=== PATIENT | male | born 1955 | race Caucasian/White ===

== ENCOUNTER 2022-12-29 17:52 | Outpatient (REF) | payer MEDICARE, SELFPAY ==
[2022-12-29 21:37] LABS: ALT 35 U/L (16-63); AST 21 U/L (15-37); Albumin 4.5 g/dL (3.4-5.0); Alkaline Phosphatase 110 U/L (46-116); Anion Gap 10.7 mmol/L (3-11); BUN 19 mg/dL (7-18); Bilirubin, Total 0.5 mg/dL (0.2-1.0); CO2 24.3 mmol/L (21.0-32.0); CREATININE 1.2 mg/dL (0.70-1.30); Calcium 9.5 mg/dL (8.5-10.1); Chloride 103 mmol/L (98-107); Estimated GFR 66.28 (mL/min/1.73m2); Glucose 81 mg/dL (74-106); Sodium 138 mmol/L (136-145); Total Protein 8.4 g/dL (6.4-8.2)
[2022-12-29 21:48] LABS: Abs Immature Grans 0.01 10^3/uL (0.0-0.06); Absolute Basophil Count 0.04 10^3/uL (0.0-0.2); Absolute Eosinophil Count 0.19 10^3/uL (0.0-0.7); Absolute Lymphocyte Count 1.99 10^3/uL (1.2-3.4); Absolute Monocyte Count 0.47 10^3/uL (0.1-0.8); Absolute Neutrophil Count 3.16 10^3/uL (1.2-6.7); Basophils % 0.7; Eosinophils % 3.2; HCT 42.5 % (40.0-50.0); HGB 13.9 g/dL (13.5-17.5); Immature Grans % 0.2; MCH 29.1 pg (27.0-33.0); MCHC 32.7 % (32.0-36.0); MCV 89 fL (80-95); MPV 10.3 fL (8.0-11.0); Neutrophils % 53.9; Platelet Count 243 10^3/uL (130-400); RBC 4.77 10^6/uL (4.36-5.78); RDW 12.5 % (11.8-14.1); RDW-SD 41.1 fL; WBC 5.86 10^3/uL (4.4-10.8)
== END 2022-12-29 17:53 | disposition home or self-care (01) ==
LOC: NCHCN 17:52
PROVIDERS: Visit Provider Family Medicine
DX: E11.9 Type 2 diabetes mellitus without complications (principal); I10 Essential (primary) hypertension; R97.20 Elevated prostate specific antigen [PSA]; N40.1 Benign prostatic hyperplasia with lower urinary tract symptoms; Z12.5 Encounter for screening for malignant neoplasm of prostate
CPT/HCPCS: 80053; 84153; 85025

== ENCOUNTER → 2023-02-20 08:43 | Outpatient (BNVA) | payer MEDICARE, SELFPAY | PROVIDERS: PCP Family Medicine; Referring Provider Family Medicine; Visit Provider Nurse Practitioner Gerontology | DX: N40.1 Benign prostatic hyperplasia with lower urinary tract symptoms (principal); N13.8 Other obstructive and reflux uropathy; R97.20 Elevated prostate specific antigen [PSA] | CPT/HCPCS: 51798; 81003; 99205 ==

== ENCOUNTER → 2023-04-27 12:56 | Outpatient (BNVA) | payer MEDICARE, SELFPAY | PROVIDERS: PCP Family Medicine; Referring Provider Family Medicine; Visit Provider Nurse Practitioner Gerontology | DX: N40.1 Benign prostatic hyperplasia with lower urinary tract symptoms (principal); N13.8 Other obstructive and reflux uropathy; R97.20 Elevated prostate specific antigen [PSA] | CPT/HCPCS: 99215 ==

== ENCOUNTER 2023-06-26 11:21 | Outpatient (REF) | payer MEDICARE, SELFPAY ==
[2023-06-26 16:39] LABS: Hemoglobin A1C 6.7 % (<5.7)
[2023-06-26 22:58] LABS: PSA, Screening 12.1 ng/mL (<=4.5)
== END 2023-06-26 11:22 | disposition home or self-care (01) ==
LOC: NCHCN 11:21
PROVIDERS: PCP Family Medicine; Visit Provider Family Medicine
DX: E11.9 Type 2 diabetes mellitus without complications (principal); R97.20 Elevated prostate specific antigen [PSA]; Z12.5 Encounter for screening for malignant neoplasm of prostate
CPT/HCPCS: 84153; 83036

== ENCOUNTER 2023-10-23 03:21 | Outpatient (CLI) | payer MEDICARE, SELFPAY ==
[2023-10-23 18:08] LABS: PSA, Diagnostic 11.5 ng/mL (<=4.5)
== END 2023-10-23 03:22 | disposition home or self-care (01) ==
LOC: LBO 03:21
PROVIDERS: PCP Family Medicine; Visit Provider Nurse Practitioner Gerontology
DX: R97.20 Elevated prostate specific antigen [PSA] (principal); N40.1 Benign prostatic hyperplasia with lower urinary tract symptoms; N13.8 Other obstructive and reflux uropathy
CPT/HCPCS: 36415; 84153

== ENCOUNTER → 2023-10-30 09:43 | Outpatient (BNVA) | payer MEDICARE, SELFPAY | PROVIDERS: PCP Family Medicine; Referring Provider Family Medicine; Visit Provider Nurse Practitioner Gerontology | DX: N40.1 Benign prostatic hyperplasia with lower urinary tract symptoms (principal); N13.8 Other obstructive and reflux uropathy; R97.20 Elevated prostate specific antigen [PSA]; N42.89 Other specified disorders of prostate | CPT/HCPCS: 99213 ==

== ENCOUNTER 2024-01-22 01:02 | Outpatient (CLI) | payer MEDICARE, SELFPAY ==
--- NOTE | 2024-01-22 | DI.CTLCSR_ITS ---
Exam(s) CT CHEST LUNG CANCER SCREEN EXAM: CT CHEST LUNG CANCER SCREEN CLINICAL HISTORY: FORMER SMOKER Z87.891 HX NICOTINE DEPENDENCE TECHNIQUE: Imaging Protocol: Axial computed tomography images with coronal and sagittal reformatted images were created and reviewed. Low dose screening protocol. COMPARISON: No exams were available for comparison FINDINGS: Tracheobronchial tree: No bronchiectasis or mucus plugging. Mediastinum and Abeba: No dominant adenopathy or fluid collection. Pulmonary parenchyma: No consolidation or dominant measurable mass. Mild emphysematous changes. Mild interstitial changes. Lung Nodules: Question of an 8 millimeter diameter nodule in the anterior right upper lobe. This at vessel branch point and the measurements include the vessel. Pleura: No effusion. No pneumothorax. Heart: The heart is not dilated. Mild coronary artery calcifications are seen. No pericardial effusio n. Aorta: Thoracic aorta non-dilated. Upper abdomen: Unremarkable. Bones: Prominent osteophytes in the mid and lower thoracic spine. Soft Tissues: Mild bilateral gynecomastia. IMPRESSION: 8 millimeter right upper lobe nodule. Lung RADS Cat 3 - Probably Benign: Probably benign finding(s) - short term follow-up suggested; inclu de nodules with a low likelihood of becoming a clinically active cancer. Lung-RADS 1.0 CATEGORIES: Category 0 - Prior chest CT exam(s) being located for comparison. Category 1 - Annual screening in 12 months. No nodules or definitely benign nodules. Category 2 - Annual screening in 12 months. Benign appearance. Nodules with low likelihood of becomin g active cancer. Category 3 - 6-month follow-up. Probably benign. Short-term follow-up suggested. Nodules with low lik elihood of becoming active cancer. Category 4A - 3-month follow-up and CT/PET if >8 mm in size. Suspicious finding. Findings which requi re additional testing. Category 4B - Findings which require additional testing and tissue sampling. Category 4X - Category 3 or 4 nodules with additional features or imaging findings that increases the suspicion of malignancy. Modifier S- Potentially clinically significant findings (non lung cancer) RADIATION DOSE DELIVERED: !Error Total DLP Total DLP !Error Total DLP DATA REPOSITORY: All CT scans at this facility are submitted to the National Radiology Data Registry (NRDR) Dose Index Registry (DIR) with the [employer] (ACR). RADIATION OPTIMIZATION: All CT scans at this facility use at least one of these dose optimization te araseli: automated exposure control; mA and/or kV adjustment per patient size (includes targeted exa ms where dose is matched to clinical indication); or iterative reconstruction.
== END 2024-01-22 01:22 ==
LOC: DI 01:02
PROVIDERS: PCP Family Medicine; Visit Provider Family Medicine
DX: Z87.891 Personal history of nicotine dependence (principal); Z12.2 Encounter for screening for malignant neoplasm of respiratory organs; R91.1 Solitary pulmonary nodule
CPT/HCPCS: 36415; 71271; 80053; 81403; 83721; 85025

== ENCOUNTER 2024-01-22 14:17 | Outpatient (CLI) | payer MEDICARE, SELFPAY ==
[2024-01-22 15:18] LABS: Abs Immature Grans 0.02 10^3/uL (0.0-0.06); Absolute Basophil Count 0.04 10^3/uL (0.0-0.2); Absolute Eosinophil Count 0.33 10^3/uL (0.0-0.7); Absolute Lymphocyte Count 2.24 10^3/uL (1.2-3.4); Absolute Monocyte Count 0.51 10^3/uL (0.1-0.8); Absolute Neutrophil Count 3.77 10^3/uL (1.2-6.7); Basophils % 0.6 %; Eosinophils % 4.8 %; HCT 42.9 % (40.0-50.0); Immature Grans % 0.3 %; Lymphocytes % 32.4 %; MCH 29.7 pg (27.0-33.0); MCHC 32.6 % (32.0-36.0); MCV 91 fL (80-95); MPV 9.6 fL (8.0-11.0); Monocytes % 7.4 %; Neutrophils % 54.5 %; Platelet Count 260 10^3/uL (130-400); RBC 4.71 10^6/uL (4.36-5.78); RDW 12.7 % (11.8-14.1); RDW-SD 41.6 fL; WBC 6.91 10^3/uL (4.4-10.8)
[2024-01-22 16:48] LABS: ALT 40 U/L (16-63); AST 21 U/L (15-37); Albumin 4.1 g/dL (3.4-5.0); Alkaline Phosphatase 106 U/L (46-116); Anion Gap 8.1 mmol/L (3-11); BUN 19 mg/dL (7-18); CO2 27.9 mmol/L (21.0-32.0); CREATININE 1.1 mg/dL (0.70-1.30); Calcium 9.4 mg/dL (8.5-10.1); Chloride 107 mmol/L (98-107); Estimated GFR 73.12 (mL/min/1.73m2); Glucose 130 mg/dL (74-106); LDL CHOLESTEROL 85 mg/dL (<100); Potassium 4.4 mmol/L (3.5-5.1); Sodium 143 mmol/L (136-145)
[2024-01-26 09:33] LABS: Misc Referral (MAYO) See Comments
== END 2024-01-22 14:18 | disposition home or self-care (01) ==
LOC: LBO 14:17
PROVIDERS: PCP Family Medicine; Visit Provider Family Medicine
DX: I10 Essential (primary) hypertension (principal); E78.5 Hyperlipidemia, unspecified; Z14.8 Genetic carrier of other disease
CPT/HCPCS: 36415; 80053; 83721; 85025

== ENCOUNTER 2024-04-22 03:44 | Outpatient (CLI) | payer MEDICARE, SELFPAY ==
[2024-04-22 18:45] LABS: PSA, Diagnostic 8.5 ng/mL (<=4.5)
== END 2024-04-22 03:45 | disposition home or self-care (01) ==
LOC: LBO 03:44
PROVIDERS: PCP Family Medicine; Visit Provider Nurse Practitioner Gerontology
DX: N40.1 Benign prostatic hyperplasia with lower urinary tract symptoms (principal); N13.8 Other obstructive and reflux uropathy; R97.20 Elevated prostate specific antigen [PSA]
CPT/HCPCS: 36415; 84153

== ENCOUNTER → 2024-05-06 10:21 | Outpatient (BNVA) | payer MEDICARE, SELFPAY | PROVIDERS: PCP Family Medicine; Referring Provider Family Medicine; Visit Provider Nurse Practitioner Gerontology | DX: N13.8 Other obstructive and reflux uropathy (principal); N40.1 Benign prostatic hyperplasia with lower urinary tract symptoms | CPT/HCPCS: 99213 ==

== ENCOUNTER 2024-06-20 10:19 | Emergency (ER) | payer MEDICARE, SELFPAY ==
[2024-06-20 10:38] VITALS: BP 144/79; PULSE 107; RESP 20; TEMP 36.6; O2SAT 93
--- NOTE | 2024-06-20 12:00 | DI.CT_ITS ---
Exam(s) CT ABDOMEN PELVIS W EXAM: CT ABDOMEN PELVIS W CLINICAL HISTORY: RLQ pain. TECHNIQUE: Imaging Protocol: Axial computed tomography images with coronal and sagittal reformatted images were created and reviewed CONTRAST MATERIAL: Intravenous: Omnipaque 350 Contrast volume:8 ml Oral: no COMPARISON: CT CT CHEST LUNG CANCER SCREEN from 01/22/2024 FINDINGS: ABDOMEN and PELVIS: Lung Bases: Bilateral bronchial wall thickening. Liver: Normal density. No suspicious mass. Gallbladder and biliary tract: Cholecystectomy. No biliary dilation. Pancreas: Normal density. No abnormal calcifications or inflammatory process. No evidence of mass. Spleen: Normal. Kidneys: Normal size, contour and axis. No radiodense stones. No obstructive uropathy. Simple cysts on the right kidney. No follow-up recommended. No suspicious masses seen. Adrenal glands: No masses seen. Vasculature: Abdominal aorta non-dilated. Mild atherosclerotic changes. Soft tissues: Unremarkable. Bladder: No gross wall thickening. No calculi.No focal mass. Bowel: No obstruction. No bowel wall thickening. Appendix normal. Mild diverticulosis. No evidenc e of diverticulitis. Normal quantity of stool. Peritoneal cavity: No ascites. No focal collection. No mesenteric inflammatory response. No free air . Bones: Unremarkable for age. Reproductive organs: Prostate mildly enlarged. Lymph nodes: No pathologically enlarged lymph nodes. IMPRESSION:: No acute abnormality in the abdomen or pelvis. Appendix normal. Bilateral bronchial wall thickening at the lung bases could indicate bronchitis. RADIATION DOSE DELIVERED: Total DLP DATA REPOSITORY: All CT scans at this facility are submitted to the National Radiology Data Registry (NRDR) Dose Index Registry (DIR) with the [employer] (ACR). RADIATION OPTIMIZATION: All CT scans at this facility use at least one of these dose optimization te chniques: automated exposure control; mA and/or kV adjustment per patient size (includes targeted exa ms where dose is matched to clinical indication); or iterative reconstruction.
[2024-06-20 12:33] LABS: Abs Immature Grans 0.04 10^3/uL (0.0-0.06); Absolute Basophil Count 0.04 10^3/uL (0.0-0.2); Absolute Eosinophil Count 0.04 10^3/uL (0.0-0.7); Absolute Lymphocyte Count 1.28 10^3/uL (1.2-3.4); Absolute Monocyte Count 0.63 10^3/uL (0.1-0.8); Absolute Neutrophil Count 8.28 10^3/uL (1.2-6.7); Basophils % 0.4 %; Eosinophils % 0.4 %; HCT 41.3 % (40.0-50.0); HGB 13.5 g/dL (13.5-17.5); Immature Grans % 0.4 %; Lymphocytes % 12.4 %; MCH 28.8 pg (27.0-33.0); MCHC 32.7 % (32.0-36.0); MCV 88 fL (80-95); MPV 9.7 fL (8.0-11.0); Monocytes % 6.1 %; Neutrophils % 80.3 %; Platelet Count 246 10^3/uL (130-400); RBC 4.68 10^6/uL (4.36-5.78); RDW 12.6 % (11.8-14.1); WBC 10.31 10^3/uL (4.4-10.8)
[2024-06-20 13:12] LABS: Bilirubin Negative (Negative); Blood Moderate (Negative); Clarity Clear (Clear); Glucose 100 mg/dL (Negative); Ketones 15 mg/dL (Negative); Leukocyte Esterase Negative (Negative); Nitrite Negative (Negative); Specific Gravity >= 1.030 (1.005-1.025); Urobilinogen 0.2 mg/dL (Up to 0.2)
[2024-06-20 13:36] LABS: Bacteria Rare HPF (Negative); C & S Indicated? No; Casts Negative LPF (Negative); Crystals Moderate Uric Acid HPF (Negative); Epithelial Cells Rare HPF (Negative); Mucus Negative (Negative); Other Cells Negative (Negative); WBC Negative HPF (0-5)
[2024-06-20 13:47] LABS: ALT 34 U/L (16-63); AST 22 U/L (15-37); Albumin 3.7 g/dL (3.4-5.0); Alkaline Phosphatase 128 U/L (46-116); Anion Gap 8.6 mmol/L (3-11); BUN 19 mg/dL (7-18); Bilirubin, Total 0.4 mg/dL (0.2-1.0); CO2 25.4 mmol/L (21.0-32.0); CREATININE 1.6 mg/dL (0.70-1.30); Calcium 9.5 mg/dL (8.5-10.1); Chloride 108 mmol/L (98-107); Estimated GFR 46.64 (mL/min/1.73m2); Glucose 164 mg/dL (74-106); Potassium 4.3 mmol/L (3.5-5.1); Sodium 142 mmol/L (136-145); Total Protein 8.3 g/dL (6.4-8.2)
[2024-06-20] MEDS: Omnipaque 350 MG/ML 100 ML BTL IJ (14:26)
[2024-06-20] MEDS: Normal Saline - Diluent 50 ML VIAL IJ (14:28)
[2024-06-20 14:40] LABS: Lipase 29 U/L (<78)
[2024-06-20 15:41] VITALS: BP 159/77; PULSE 92; RESP 15; RESP 16; TEMP 36.7; O2SAT 95
[2024-06-20] MEDS: Ketorolac 15 MG/ML VIAL 7.5 MG IVP (15:51)
--- NOTE | 2024-06-20 17:03 | W.ED.GENAD ---
Discharge Plan Disposition Patient Disposition: Home Condition: Stable Discharge Details Clinical Impression: Abdominal pain Primary Care Provider: Fer Tesfaye ED Provider: Kayy Greenberg Home Meds and New Rx's Prescriptions: Continued tamsulosin [Flomax] 0.4 mg capsule 0.4 mg PO DAILY Qty: 90 1RF amlodipine 10 mg tablet 10 mg PO DAILY metformin 500 mg tablet 500 mg PO DAILY olmesartan 40 mg tablet 40 mg PO DAILY simvastatin 40 mg tablet 40 mg PO DAILY naproxen 250 mg tablet 250 mg PO BID PRN glipizide 10 mg tablet 5 mg PO DAILY Discharge Instructions Instructions: Abdominal Pain, Adult ED Additional Instructions: Recommend stool softener, Dulcolax which is [id number]-rrt-[id number] make sure you are consuming 8, 8 oz glasses of water daily Take Naprosyn and Tylenol as prescribed Have your urine rechecked as you have a scant amount of blood noted Have your kidney function rechecked by your doctor in the next 1 to 2 weeks If you have worsening pain fever chills please return for reassessment but your CT scan was reassuring today you did not have an elevated white blood cell count Referrals: Fer Tesfaye MD [Primary Care Provider] - 2 days Discharge Data Discharge Date/Time-TO BE ENTERED AT DEPARTURE: 06/20/24 16:01 HPI General Date/Time Provider Initiated Documentation: 06/20/24 11:43. HPI Narrative: The patient is a 58-year-old male who presents with abdominal pain since this morning, accompanied by nausea and constipation. The abdominal pain started at 0500 hours. He reports that the pain has improved at the time of the visit, but due to its severity at onset, he sought medical assessment. He does not experience any radiation of pain, urinary symptoms, fever, chills, or respiratory symptoms. He recently was diagnosed with COVID-19 at the beginning of the month. Related Data Home Medications ?Medication ?Instructions ?Recorded ?Confirmed amlodipine 10 mg tablet 10 mg PO DAILY 01/06/23 metformin 500 mg tablet 500 mg PO DAILY 01/06/23 naproxen 250 mg tablet 250 mg PO BID PRN 01/06/23 olmesartan 40 mg tablet 40 mg PO DAILY 01/06/23 simvastatin 40 mg tablet 40 mg PO DAILY 01/06/23 glipizide 10 mg tablet 5 mg PO DAILY 05/06/24 tamsulosin 0.4 mg capsule (Flomax) 0.4 mg PO DAILY #90 caps 05/06/24 05/06/24 Previous Rx's ?Medication ?Instructions ?Recorded tamsulosin 0.4 mg capsule (Flomax) 0.4 mg PO DAILY #90 caps 05/06/24 Allergies Allergy/AdvReac Type Severity Reaction Status Date / Time lisinopril Allergy Other (See Verified 06/20/24 10:40 Comment) General Stated Complaint: Abd Prob DARLIN: 3 Exam Narrative Exam Narrative: General Appearance: Patient is alert and oriented, not in acute distress. Vital signs: Within normal limits. HEENT: Within normal limits. Respiratory: Lungs are clear to auscultation. Cardiovascular: Cardiac rhythm is regular. Gastrointestinal: There is some tenderness in the right lower quadrant of the abdomen without rebound or guarding. No palpable hernia or mass. No abdominal bruit or pulsatile mass appreciated. Genitourinary: No CVA tenderness. Back, Musculoskeletal: Distal pulses in the musculoskeletal system are intact. Skin: Warm and dry, no rash. Neurological: Normal. Course Vital Signs Vital signs: Vital Signs Temperature 36.6 C 06/20/24 10:38 Pulse 107 H 06/20/24 10:38 Respiratory Rate 20 06/20/24 10:38 Blood Pressure 144/79 H 06/20/24 10:38 Pulse Oximetry 93 06/20/24 10:38 Temperature 36.7 C 06/20/24 15:41 Temperature Source Oral 06/20/24 15:41 Pulse 92 H 06/20/24 15:41 Respiratory Rate 15 06/20/24 15:41 Blood Pressure 159/77 H 06/20/24 15:41 Blood Pressure Position Supine 06/20/24 15:41 Pulse Oximetry 95 06/20/24 15:41 Oxygen Delivery Method Room Air 06/20/24 15:41 Oxygen Flow Rate 0 06/20/24 15:41 Pain Level 4 06/20/24 10:38 Lab/Test Results Lab/Test Results: Laboratory Tests Range/Units 06/20/24 06/20/24 12:26 12:50 WBC (4.4-10.8) 10^3/uL 10.31 RBC (4.36-5.78) 10^6/uL 4.68 Hgb (13.5-17.5) g/dL 13.5 Hct (40.0-50.0) % 41.3 MCV (80-95) fL 88 MCH (27.0-33.0) pg 28.8 MCHC (32.0-36.0) % 32.7 RDW (11.8-14.1) % 12.6 Plt Count (130-400) 10^3/uL 246 MPV (8.0-11.0) fL 9.7 Immature Gran % % 0.4 Neutrophils % % 80.3 Lymphocytes % % 12.4 Monocytes % % 6.1 Eosinophils % % 0.4 Basophils % % 0.4 Nucleated RBC % (0.0-0.3) % 0.0 Absolute Neutrophils (1.2-6.7) 10^3/uL 8.28 H Absolute Lymphocytes (1.2-3.4) 10^3/uL 1.28 Absolute Monocytes (0.1-0.8) 10^3/uL 0.63 Absolute Eosinophils (0.0-0.7) 10^3/uL 0.04 Absolute Basophils (0.0-0.2) 10^3/uL 0.04 Sodium (136-145) mmol/L 142 Potassium (3.5-5.1) mmol/L 4.3 Chloride (98-107) mmol/L 108 H Carbon Dioxide (21.0-32.0) mmol/L 25.4 Anion Gap (3-11) mmol/L 8.6 BUN (7-18) mg/dL 19 H Creatinine (0.70-1.30) mg/dL 1.6 H Est GFR (CKD-EPI 2020) (mL/min/1.73m2) 46.64 Glucose (74-106) mg/dL 164 H Calcium (8.5-10.1) mg/dL 9.5 Total Bilirubin (0.2-1.0) mg/dL 0.4 AST (15-37) U/L 22 ALT (16-63) U/L 34 Alkaline Phosphatase (46-116) U/L 128 H Total Protein (6.4-8.2) g/dL 8.3 H Albumin (3.4-5.0) g/dL 3.7 Lipase (<78) U/L 29 Urine Color (Yellow) Yellow Urine Clarity (Clear) Clear Urine pH (5-8) 6.0 Ur Specific [place] (1.005-1.025) >= 1.030 H Urine Protein (Neg-Trace) mg/dL 30 H Urine Ketones (Negative) mg/dL 15 H Urine Blood (Negative) Moderate H Urine Nitrite (Negative) Negative Urine Bilirubin (Negative) Negative Urine Urobilinogen (Up to 0.2) mg/dL 0.2 Ur Leukocyte Esterase (Negative) Negative Urine RBC (0-2) HPF 10-20 H Urine WBC (0-5) HPF Negative Ur Epithelial Cells (Negative) HPF Rare Urine Crystals (Negative) HPF Moderate Uric Acid Urine Bacteria (Negative) HPF Rare Urine Casts (Negative) LPF Negative Urine Mucus (Negative) Negative Urine Other (Negative) Negative Ur Culture Indicated? No Urine Glucose (Negative) mg/dL 100 H Medical Decision Making Laboratory Studies Sodium is 124. Glucose has gone down to 713. Creatinine 1.6. Imaging CT abdomen and pelvis did not show evidence of acute abnormality. Initial Assessment: 58-year-old male presents with abdominal pain since this morning with nausea and constipation. Pain started at 5 AM, recently diagnosed with Covid at the beginning of the month. Pain improved at this time, but due to severity at onset, presents for assessment. Denies radiation of pain, urinary symptoms, fever, chills, or respiratory symptoms. Alert and oriented, no acute distress, tenderness in right lower quadrant without rebound or guarding, no palpable hernia or mass, no abdominal bruit or pulsatile mass, no CVA tenderness, distal pulses intact, lungs clear to auscultation, cardiac rhythm regular. ED Course: - CT abdomen and pelvis ordered, radiology interpretation and personal review did not show evidence of acute abnormality. - Creatinine 1.6, slightly increased, suspect dehydration, patient encouraged to hydrate at home. - Glucose rechecked by primary care physician, result 164. - Urinalysis and lab, patient encouraged to have urinalysis rechecked in 1 to 2 weeks. - No evidence of secondary infection. - Stool in right colon may be contributing to discomfort, MiraLAX recommended for home use. - Return precautions reviewed and patient expressed understanding. Final Assessment: Abdominal pain likely due to stool in right colon and possible dehydration. No acute abnormalities on CT scan. Slightly elevated creatinine suggesting dehydration. Glucose and urinalysis to be rechecked by primary care physician. MiraLAX recommended for constipation. Clinical Impression: - Abdominal pain - Dehydration - Constipation Disposition: - Discharge - Follow-Up: Recheck urinalysis in 1 to 2 weeks, glucose recheck by primary care physician. MDM Components Evaluation: - Number of Differential Diagnoses or Management Options: Abdominal pain, dehydration, constipation. - Amount and Complexity of Data Reviewed: CT abdomen and pelvis, creatinine level, glucose level, urinalysis. - Risk of Complication and Morbidity or Mortality: Low risk due to no acute abnormalities on CT, mild dehydration, and manageable constipation. Quality:SDOH Health Related Social Needs: No Data to Display PFSH All Active Problems (Updated 06/20/24 @ 15:42 by FRANSISCA Gaona) Abdominal pain (Acute) Hypertension (Chronic) BPH w urinary obs/LUTS (Acute) Elevated PSA (Acute) Diabetes mellitus (Chronic) Social History Smoking risk assessment performed?: No
== END 2024-06-20 16:01 | disposition home or self-care (01) ==
PROVIDERS: Emergency Provider Physician Assistant; PCP Family Medicine
DX: R10.32 Left lower quadrant pain (principal); R11.0 Nausea; I10 Essential (primary) hypertension; E11.9 Type 2 diabetes mellitus without complications; Z79.84 Long term (current) use of oral hypoglycemic drugs
CPT/HCPCS: 36415; 80053; 83690; 96374; 99285; 74177; 81003; 81015; 85025; J1885; J3490

== ENCOUNTER 2024-07-22 01:25 | Outpatient (CLI) | payer MEDICARE, SELFPAY ==
--- NOTE | 2024-07-22 | DI.CT_ITS ---
Exam(s) CT CHEST WO EXAM: CT CHEST WO CLINICAL HISTORY: Nodule of lung, R91.1 TECHNIQUE: Imaging Protocol: Axial computed tomography images with coronal and sagittal reformatted images were created and reviewed. Computer aided detection (CAD) was utilized. CONTRAST MATERIAL: Intravenous: Omnipaque 350 Contrast volume:structured data ml. COMPARISON: CT CT CHEST LUNG CANCER SCREEN from 01/22/2024 FINDINGS: Pulmonary parenchyma: Mild interval increase in previously noted nodule in the right upper lobe now m easuring 10 by 10 x 8 millimeters. It is located at a branch point but there appears to be associate d spiculation. No consolidation. Mild scarring in the left upper lobe. Mild emphysematous changes. Tracheobronchial tree: Mild diffuse bronchial wall thickening. No bronchiectasis or mucous plugging. Mediastinum and Abeba: No dominant adenopathy or fluid collection. Pleura: No effusion. No pneumothorax. Heart: The heart is not dilated. Mild coronary artery calcifications are seen. Aorta: Thoracic aorta non-dilated. Mild atherosclerotic changes. Pulmonary arteries: No gross evidence of emboli. Upper abdomen: No acute findings. Bones: Degenerative changes in the spine. Soft tissues: Mild bilateral gynecomastia. IMPRESSION: Mild interval increase in nodule in the right upper lobe, none measuring 10 millimeters. Biopsy is r ecommended. Unexpected findings RADIATION DOSE DELIVERED: 220.95mGy.cm Total DLP DATA REPOSITORY: All CT scans at this facility are submitted to the National Radiology Data Registry (NRDR) Dose Index Registry (DIR) with the [employer] (ACR). RADIATION OPTIMIZATION: All CT scans at this facility use at least one of these dose optimization te chniques: automated exposure control; mA and/or kV adjustment per patient size (includes targeted exa ms where dose is matched to clinical indication); or iterative reconstruction.
== END 2024-07-22 01:45 ==
PROVIDERS: PCP Family Medicine; Visit Provider Family Medicine
DX: R91.1 Solitary pulmonary nodule (principal)
CPT/HCPCS: 71250

== ENCOUNTER 2024-11-04 00:26 | Outpatient (CLI) | payer MEDICARE, SELFPAY ==
--- NOTE | 2024-11-04 | DI.MRI_ITS ---
Exam(s) MR BRAIN WO/W EXAM: MR BRAIN WO/W CLINICAL HISTORY: [place] LUNG C34.91 [place] [facility] [facility] [place] AVIDITY ESOPHAGUS LYTIC LESION RT. TECHNIQUE: Multiplanar multisequence MRI of the brain was performed. CONTRAST MATERIAL: IV Contrast: 16 ML of Dotarem contrast administered. FINDINGS: VENTRICLES AND EXTRA AXIAL SPACES: Normal in size and morphology for the patient's age. HEMORRHAGE: None. CEREBRAL PARENCHYMA: No focus of restricted diffusion to suggest acute infarct. No space-occupying lesion identified. There are a few small scattered high signal foci in the white matter likely reflecting chronic microvascular changes. BRAINSTEM/CEREBELLUM: Normal. CALVARIUM: Normal. ENHANCEMENT: No suspicious enhancement identified. VISUALIZED PARANASAL SINUSES/MASTOIDS: Clear. Orbits: Unremarkable. Pituitary: Not enlarged. Vasculature: Normal flow voids. IMPRESSION: Unremarkable MRI of the brain. No evidence of metastatic disease. DATA REPOSITORY:
--- NOTE | 2024-11-04 | DI.MRI_ITS ---
Exam(s) MR UPPER JOINT RT WO/W EXAM: MR UPPER JOINT RT WO/W CLINICAL HISTORY: NSCLC RT LUNG C34.91 PET AT [facility] [place] FDG AVID LESIONRT SHOULDER UNCLEAR. TECHNIQUE: Multiplanar multisequence MRI was performed. CONTRAST MATERIAL: IV Contrast: 20 mL of Dotarem contrast administered. COMPARISON: Chest CT [address] 26 September 2024 FINDINGS: Exam is limited by motion. There is a well-defined lesion with sclerotic border in the spine of the scapula measuring 2.4 x 1.5 by 1.2 cm. It is non expansile. It shows low signal on T1 and mostly low signal on T2 weighted images with peripheral high signal and enhancement. There is no detectable change in size from the 2023 exam. The marrow signal is otherwise normal. Incidental small degenerative cyst in the superior humeral head. Supraspinatus tendinosis is noted. IMPRESSION: Nonspecific 2.4 centimeter peripherally enhancing lesion in the superior scapular blade. Primary or secondary malignancy is not excluded although it shows stable size and appearance from 2023. DATA REPOSITORY:
[2024-11-04] MEDS: Gadoterate meglumine 20 ML SYRINGE 16 ML IVP (14:03)
[2024-11-04] MEDS: Normal Saline Flush 10 ML SYR IVP (14:04)
== END 2024-11-04 00:46 ==
LOC: DI 00:26
PROVIDERS: PCP Family Medicine; Visit Provider Internal Medicine Pulmonary Disease
DX: C34.91 Malignant neoplasm of unspecified part of right bronchus or lung (principal)
CPT/HCPCS: 36415; 70553; 73223; 84153

== ENCOUNTER 2024-11-04 01:31 | Outpatient (CLI) | payer MEDICARE, SELFPAY ==
[2024-11-04 18:09] LABS: PSA, Diagnostic 13.7 ng/mL (<=4.5)
== END 2024-11-04 01:32 | disposition home or self-care (01) ==
LOC: LBO 01:31
PROVIDERS: PCP Family Medicine; Visit Provider Nurse Practitioner Gerontology
DX: R97.20 Elevated prostate specific antigen [PSA] (principal); N40.1 Benign prostatic hyperplasia with lower urinary tract symptoms; N13.8 Other obstructive and reflux uropathy
CPT/HCPCS: 36415; 84153

== ENCOUNTER → 2024-11-11 10:29 | Outpatient (BNVA) | payer MEDICARE, SELFPAY | PROVIDERS: PCP Family Medicine; Visit Provider Nurse Practitioner Gerontology | DX: N40.1 Benign prostatic hyperplasia with lower urinary tract symptoms (principal); N13.8 Other obstructive and reflux uropathy; R97.20 Elevated prostate specific antigen [PSA] | CPT/HCPCS: 99214 ==

== ENCOUNTER 2025-01-20 14:28 | Outpatient (REF) | payer MEDICARE, SELFPAY ==
[2025-01-20 16:43] LABS: ALT 24 U/L (16-63); AST 21 U/L (15-37); Albumin 4.3 g/dL (3.4-5.0); Alkaline Phosphatase 119 U/L (46-116); Anion Gap 9.9 mmol/L (3-11); BUN 24 mg/dL (7-18); Bilirubin, Total 0.5 mg/dL (0.2-1.0); CO2 25.1 mmol/L (21.0-32.0); Calcium 9.6 mg/dL (8.5-10.1); Chloride 104 mmol/L (98-107); Estimated GFR 72.67 (mL/min/1.73m2); Glucose 81 mg/dL (74-106); Potassium 4.1 mmol/L (3.5-5.1); Sodium 139 mmol/L (136-145); Total Protein 7.8 g/dL (6.4-8.2)
== END 2025-01-20 14:29 | disposition home or self-care (01) ==
LOC: NCHCN 14:28
PROVIDERS: PCP Family Medicine; Visit Provider Family Medicine
DX: I10 Essential (primary) hypertension (principal)
CPT/HCPCS: 80053

== ENCOUNTER → 2025-03-24 00:51 | Outpatient (CLI) | payer MEDICARE, SELFPAY ==
--- NOTE | 2025-03-24 | DI.CT_ITS ---
Exam(s) CT CHEST W EXAM: CT CHEST W CLINICAL HISTORY: NSCLC RUL C34.90 S/P SBRT EVAL FOR RECURRENCE TECHNIQUE: Imaging Protocol: Axial computed tomography images with coronal and sagittal reformatted images were created and reviewed. Computer aided detection (CAD) was utilized. CONTRAST MATERIAL: Intravenous: Omnipaque 350 Contrast volume:70 ml. COMPARISON: CT CT CHEST WO from 07/22/2024 FINDINGS: Pulmonary parenchyma: Interval decrease in size of previously noted right upper lobe mass, now measuring 6 millimeters compared with 10 on the previous exam. There is associated spiculation/scarring. No consolidation. Mild underlying emphysematous changes. Tracheobronchial tree: No stable appearance of bronchial wall thickening in the upper and lower lobes. Mediastinum and Abeba: Stable small mediastinal lymph nodes. The largest is in the subcarinal region measuring 9 millimeters in short axis. Pleura: No effusion. No pneumothorax. Heart: The heart is not dilated. Mild coronary artery calcifications are seen. Aorta: Thoracic aorta non-dilated. Mild atherosclerotic changes. Pulmonary arteries: No gross evidence of emboli. Upper abdomen: No acute findings. Bones: Degenerative changes in the spine. Soft tissues: Unremarkable. IMPRESSION: Decrease in size of right upper lobe mass. No new masses. RADIATION DOSE DELIVERED: 129.82mGy.cm Total DLP DATA REPOSITORY: All CT scans at this facility are submitted to the National Radiology Data Registry (NRDR) Dose Index Registry (DIR) with the [employer] (ACR). RADIATION OPTIMIZATION: All CT scans at this facility use at least one of these dose optimization techniques: automated exposure control; mA and/or kV adjustment per patient size (includes targeted exams where dose is matched to clinical indication); or iterative reconstruction.
[2025-03-24] MEDS: Normal Saline Flush 10 ML SYR IVP (12:56)
[2025-03-24] MEDS: Normal Saline - Diluent 50 ML VIAL IJ (12:56)
[2025-03-24] MEDS: Omnipaque 350 MG/ML 100 ML BTL IJ (12:57)
== END ==
LOC: DI 00:51
PROVIDERS: PCP Family Medicine; Visit Provider Preventive Medicine Undersea and Hyperbaric Medicine
DX: C34.91 Malignant neoplasm of unspecified part of right bronchus or lung (principal)
CPT/HCPCS: 71260; 82565; J3490